=== PATIENT | male | born 1950 | race Caucasian/White ===

== ENCOUNTER 2021-12-02 06:36 | Observation (INO) | payer MEDICARE ==
[2021-12-02 07:09] LABS: #Basophils 0.1 10x3/uL (0.0-0.2); #Eosinphils 0.7 10x3/uL (0.0-0.5); #Monocytes 0.9 10x3/uL (0.0-1.1); #Neutrophils 5.6 10x3/uL (1.5-8.4); %Basophils 0.7 % (0.0-2.0); %Eosinophils 7.7 % (0.0-6.0); Hemoglobin 14.9 g/dL (13.5-17.5); Mean Corpuscular HGB CONC 33.9 g/dL (32.0-36.0); Mean Corpuscular Hemoglobin 29.7 pg (27.0-33.0); Mean Corpuscular Volume 87.6 fl (81.2-95.1); Mean Platelet Volume 10.6 fl (7.4-10.4); Platelet Count 306 10x3/uL (150-450); RBC Distribution Width 15.4 % (11.5-14.5); Red Blood Cell (RBC) Count 5.01 10x6/uL (4.32-5.72); White Blood Cell (WBC) Count 8.7 10x3/uL (3.5-10.5)
[2021-12-02 07:19] LABS: ALT (SGPT) 19 U/L (8-55); Alkaline Phosphatase 90 U/L (40-110); Anion Gap 18 mmol/L (10-20); BUN (Urea Nitrogen) 19 mg/dL (8.4-25.7); Bilirubin, Total 0.4 mg/dL (0.2-1.2); Calc. Creatinine Clearance 0 mL/min (70-130); Calcium 8.7 mg/dL (7.8-10.44); Carbon Dioxide 23 mmol/L (23-31); Chloride 108 mmol/L (98-107); Estimated GFR 66; Globulin 2.8 g/dL (2.4-3.5); Glucose 103 mg/dL (83-110); Potassium 4.5 mmol/L (3.5-5.1); Protein, Total 6.8 g/dL (5.8-8.1); Sodium 144 mmol/L (136-145)
[2021-12-02 07:27] LABS: AST (SGOT) 32 U/L (5-34)
[2021-12-02] MEDS ORDERED: Nitroglycerin 2% Ointment 1 INCH/1 GM Packet ONE (07:42)
[2021-12-02] MEDS ORDERED: Acetaminophen 325 MG TAB PO PRN (08:23)
[2021-12-02] MEDS ORDERED: Clopidogrel Bisulfate 75 MG TAB ONE (13:03)
[2021-12-02] MEDS: Clopidogrel Bisulfate 75 MG TAB PO SCH (13:20)
[2021-12-02 13:32] LABS: Troponin I Less than 0.010 ng/mL (< 0.028)
[2021-12-02] MEDS ORDERED: Acetaminophen 325 MG TAB ONE (13:55)
[2021-12-02 16:16] LABS: Troponin I Less than 0.010 ng/mL (< 0.028)
[2021-12-02] MEDS ORDERED: Atorvastatin Calcium 40 MG TAB PO SCH (21:00)
[2021-12-02] MEDS: Metoprolol Tartrate 25 MG TAB PO SCH (21:18)
[2021-12-03 04:28] LABS: #Basophils 0.1 10x3/uL (0.0-0.2); #Eosinphils 0.7 10x3/uL (0.0-0.5); #Monocytes 0.8 10x3/uL (0.0-1.1); %Basophils 0.7 % (0.0-2.0); %Lymphocytes 21.3 % (18.0-47.0); %Monocytes 9.2 % (0.0-10.0); %Neutrophils 60.1 % (40.0-75.0); Hemoglobin 15.1 g/dL (13.5-17.5); Mean Corpuscular HGB CONC 33.6 g/dL (32.0-36.0); Mean Corpuscular Hemoglobin 29.6 pg (27.0-33.0); Mean Corpuscular Volume 88.2 fl (81.2-95.1); Mean Platelet Volume 10.5 fl (7.4-10.4); Platelet Count 313 10x3/uL (150-450); RBC Distribution Width 14.6 % (11.5-14.5); White Blood Cell (WBC) Count 8.3 10x3/uL (3.5-10.5)
[2021-12-03 04:49] LABS: ALT (SGPT) 15 U/L (8-55); AST (SGOT) 23 U/L (5-34); Albumin 3.7 g/dL (3.4-4.8); Alkaline Phosphatase 71 U/L (40-110); Anion Gap 11 mmol/L (10-20); BUN (Urea Nitrogen) 17 mg/dL (8.4-25.7); Bilirubin, Total 0.3 mg/dL (0.2-1.2); Calc. Creatinine Clearance 0 mL/min (70-130); Calcium 8.5 mg/dL (7.8-10.44); Carbon Dioxide 25 mmol/L (23-31); Cardiac Risk 2.8 (Less than 4.5); Chloride 108 mmol/L (98-107); Cholesterol 88 mg/dl (< 200 Desired); Estimated GFR 79; Globulin 2.7 g/dL (2.4-3.5); Glucose 99 mg/dL (83-110); HDL Cholesterol 32 mg/dL (>60 Neg Risk); LDL Cholesterol, Calculated 36 mg/dL; Protein, Total 6.4 g/dL (5.8-8.1); Sodium 140 mmol/L (136-145); Triglycerides 99 mg/dL (Less than 150)
[2021-12-03 04:51] VITALS: BMI 24.7
[2021-12-03] MEDS ORDERED: Aspirin Chewable 81 MG TAB PO SCH (09:00)
[2021-12-03] MEDS: Metoprolol Tartrate 25 MG TAB PO SCH (09:53)
[2021-12-03] MEDS: Clopidogrel Bisulfate 75 MG TAB PO SCH (09:53)
[2021-12-03 12:33] VITALS: BP 117/68; TEMP 97.2
== END 2021-12-03 14:30 | disposition home or self-care (01) ==
LOC: CSHERS 06:36 → CSHERHOLD 09:52 → INTOOBSV 09:52 → CSHTELE 20:35
PROVIDERS: ADMIT Emergency Medicine; ATTEND Hospitalist
DX: R07.2 Precordial pain (principal); I10 Essential (primary) hypertension; F17.210 Nicotine dependence, cigarettes, uncomplicated; I25.10 Atherosclerotic heart disease of native coronary artery without angina pectoris; I65.29 Occlusion and stenosis of unspecified carotid artery; K21.9 Gastro-esophageal reflux disease without esophagitis; F10.99 Alcohol use, unspecified with unspecified alcohol-induced disorder; R29.898 Other symptoms and signs involving the musculoskeletal system; M79.89 Other specified soft tissue disorders; C76.0 Malignant neoplasm of head, face and neck; Z79.82 Long term (current) use of aspirin; Z79.02 Long term (current) use of antithrombotics/antiplatelets; Z88.5 Allergy status to narcotic agent; Z79.899 Other long term (current) drug therapy; Z95.828 Presence of other vascular implants and grafts
CPT/HCPCS: 71045; 76936; 80053; 80061; 83735; 83880; 84484 ×2; 85025; 85379; 93005; 93306; 99285; G0378 ×3; 36415; 84443

== ENCOUNTER 2022-11-20 11:16 | Day surgery (SDC) | payer MEDICARE ==
[2022-11-20 12:06] VITALS: BMI 25.5
[2022-11-20] MEDS ORDERED: PROPOFOL 40 ML ONE (12:50)
== END 2022-11-20 14:16 | disposition home or self-care (01) ==
LOC: CSHSDC 11:16
PROVIDERS: ATTEND Internal Medicine Gastroenterology
PROC: 0D758ZZ Dilation of Esophagus, Via Natural or Artificial Opening Endoscopic (ICD-10-PCS; principal; 2022-11-20)
PROC: 0DBM8ZZ Excision of Descending Colon, Via Natural or Artificial Opening Endoscopic (ICD-10-PCS; 2022-11-20)
DX: D12.4 Benign neoplasm of descending colon (principal); K21.9 Gastro-esophageal reflux disease without esophagitis; K57.90 Diverticulosis of intestine, part unspecified, without perforation or abscess without bleeding; I25.10 Atherosclerotic heart disease of native coronary artery without angina pectoris; I10 Essential (primary) hypertension; E78.00 Pure hypercholesterolemia, unspecified; F17.210 Nicotine dependence, cigarettes, uncomplicated; Z86.010 Personal history of colon polyps; Z79.899 Other long term (current) drug therapy; Z79.82 Long term (current) use of aspirin; Z95.5 Presence of coronary angioplasty implant and graft; Z88.8 Allergy status to other drugs, medicaments and biological substances
CPT/HCPCS: 88305; J2704